=== PATIENT | male | born 1975 | race Caucasian/White ===

== ENCOUNTER 2019-08-02 08:08 | Day surgery (SDC) | payer OTHER ==
[2019-07-28 11:19] LABS: BASOPHILS % (AUTO) 0.2 % (0.0-5.0); EOSINOPHILS % (AUTO) 1.4 % (0.0-8.0); HEMATOCRIT 47.2 % (42-54); LYMPHOCYTES % (AUTO) 25.6 % (21.0-51.0); MEAN CORPUSCULAR HEMOGLOBIN 30.9 pg (27.0-33.0); MEAN CORPUSCULAR HGB CONC 34.3 g/dL (32.0-36.0); MEAN CORPUSCULAR VOLUME 90.1 fL (79-99); MONOCYTES % (AUTO) 7.7 % (3.0-13.0); NEUTROPHILS % (AUTO) 64.8 % (40.0-77.0); PLATELET COUNT (AUTO) 279 K/uL (130-400); RED BLOOD CELL COUNT(AUTO) 5.24 MIL/uL (4.50-6.20); RED CELL DISTRIBUTION WIDTH 13.5 % (11.0-15.5); WHITE BLOOD COUNT (AUTO) 9.1 K/uL (4.8-10.8)
[2019-07-28 11:26] LABS: CREATININE 0.9 mg/dL (0.5-1.5); POTASSIUM 4.3 mmol/L (3.5-5.1)
[2019-07-29 10:35] VITALS: BP 146/88
[~2019-08-02] VITALS: Ht 185.4 cm; Wt 97.3 kg
[2019-08-02] VITALS (17 sets, daily range): BP systolic 121–145; BP diastolic 58–85
[~2019-08-02 08:08] MED LIST: IBUP-2071 PO
[2019-08-02] MEDS ORDERED: LACTATED RINGERS 1000ML 1,000 ML IV ONE (08:47)
[2019-08-02] MEDS: CEFAZOLIN SODIUM 1 GM VIAL IVP ONE ×2 (09:03→12:03)
--- NOTE | 2019-08-02 09:25 | NUR ---
POTENTIAL FOR INFECTION: SHAVED WITH CLIPPER TO RT SHOULDER, AXILLAE, AND UPPER ARM PER SHWETHA SAMANIEGO, FOLLOWED BY WIPING WITH ARSH: 2% CHLORHEXIDINE GLUCONATE CLOTH PATIENTS PRE-OP SKIN PREP.
[2019-08-02] MEDS ORDERED: LIDOCAINE PF 2% 5ML ABBOJECT ONE (10:33)
[2019-08-02] MEDS ORDERED: PROPOFOL 10 MG/ML 20ML VIAL IV ONE (10:33)
[2019-08-02] MEDS ORDERED: SUCCINYLCHOLINE 200MG/10ML SYR ONE (10:33)
[2019-08-02] MEDS ORDERED: ROCURONIUM 10MG/1ML SYR 10 MG/ML ML ONE (10:34)
[2019-08-02] MEDS ORDERED: FENTANYL CITRATE PF 50 MCG/1 ML 2ML VIAL ONE (10:34)
[2019-08-02] MEDS ORDERED: EPINEPHRINE 1 MG/ML 30ML VIAL IJ ONE (10:39)
[2019-08-02] MEDS ORDERED: ROPIVACAINE 0.5% 5MG/ML 30ML IJ ONE (10:42)
[2019-08-02] MEDS ORDERED: MIDAZOLAM HCL 1 MG/ML 2ML VIAL ONE (10:55)
[2019-08-02] MEDS ORDERED: ONDANSETRON HCL 4 MG/2 ML VIAL ONE (15:05)
[2019-08-02] MEDS ORDERED: CEPH500B PO (15:26)
[2019-08-02] MEDS ORDERED: HYDR-4457 PO (15:26)
--- NOTE | 2019-08-02 16:20 | NUR ---
ASSESSMENT RECEIVED PT FROM PACU STAFF JANUARY BEASLEY. SLING TO RIGHT SHOULDER. DRSG DRY AND INTACT. DENIES PAIN.
--- NOTE | 2019-08-02 17:00 | NUR ---
DISCHARGE ORAL AND WRITTEN DISCHARGE INSTRUCTIONS GIVEN TO PT AND PTS GIRLFRIEND ALONG WITH PRESCRIPTIONS. BOTH VERBALIZED UNDERSTANDING.
== END 2019-08-02 17:15 | disposition home or self-care (01) ==
LOC: DAH 08:08
PROVIDERS: ATTEND Orthopaedic Surgery
DX: S43.431A Superior glenoid labrum lesion of right shoulder, initial encounter (principal); Z11.59 Encounter for screening for other viral diseases; M19.011 Primary osteoarthritis, right shoulder; M75.41 Impingement syndrome of right shoulder; M67.813 Other specified disorders of tendon, right shoulder; G89.29 Other chronic pain; F41.9 Anxiety disorder, unspecified; F32.9 Major depressive disorder, single episode, unspecified; F43.10 Post-traumatic stress disorder, unspecified; M54.12 Radiculopathy, cervical region; X58.XXXA Exposure to other specified factors, initial encounter; Y93.89 Activity, other specified; Y92.89 Other specified places as the place of occurrence of the external cause; Y99.8 Other external cause status
CPT/HCPCS: 29823; 29824; 29826; 29828; 36415; 64415; 76942; 80048; 85025; A4213; A4215; A4221; A4222; A4223; A4565; A4600; A4649 ×4; A4663; A4930; A5120; A6204; C1713; G0168; J0171; J0330; J0690; J2001; J2250; J2405; J2704; J2795; J3010; J7030 ×2; J7120; U0003